=== PATIENT | female | born 1995 | race Asian ===

== ENCOUNTER 2018-11-05 01:29 | Emergency (ER) | payer BC ==
[~2018-11-05] VITALS: Ht 167.6 cm; Wt 84.8 kg
[2018-11-05 01:36] VITALS: Ht 167.6 cm; Wt 84.8 kg
[2018-11-05] MEDS ORDERED: SOD CHLORIDE 0.9% 1,000 ML IV STA (01:54)
[2018-11-05 03:03] VITALS: BP 116/64; PULSE 94; RESP 16
== END 2018-11-05 03:02 | disposition home or self-care (01) ==
LOC: FTE 01:29
DX: R50.9 Fever, unspecified (principal)
CPT/HCPCS: 36415; 80053; 81001; 81025; 83690; 85025; 99284; J7030